=== PATIENT | male | born 2000 | race Caucasian/White ===

== ENCOUNTER → 2022-09-23 13:00 | Outpatient (BNVA) | payer OTHER, SELFPAY | PROVIDERS: Family Provider Family Medicine; PCP Family Medicine; Visit Provider Registered Nurse Neonatal Intensive Care | DX: S69.91XA Unspecified injury of right wrist, hand and finger(s), initial encounter (principal); W23.2XXA Caught, crushed, jammed or pinched between a moving and stationary object, initial encounter; Y99.0 Civilian activity done for income or pay | CPT/HCPCS: 73130 ==